=== PATIENT | male | born 1950 | race Caucasian/White ===

== ENCOUNTER → 2017-02-24 | Outpatient (CLI) | payer BC ==
[2017-02-24 13:22] LABS: URINE APPEARANCE CLEAR (CLEAR); URINE BILIRUBIN NEG (NEG); URINE COLOR YELLOW; URINE NITRITE NEG (NEG); URINE PH 5.5 (4.5-7.5); URINE SPECIFIC GRAVITY 1.021 (1.000-1.030); UROBILINOGEN NEG (NEG)
[2017-02-24 13:24] LABS: MANUAL MICROSCOPIC REQUIRED? NO; REVIEW REQ? NO
[2017-02-24 13:30] LABS: BASO % 0.3 %; BASO ABS # 0.02 K/uL (0-0.2); COMPLETE YES; EOS % 1.6 %; HEMATOCRIT 39.9 % (42-52); IG% 0.3 %; LYMPH % 34.5 %; LYMPH ABS # 2.32 K/uL (1.2-3.4); MEAN CELL VOLUME 92.6 fL (80-100); MEAN CORPUSCULAR HEMOGLOBIN 31.1 pg (25-34); MEAN CORPUSCULAR HGB CONC 33.6 g/dl (32-36); MONO % 7.7 %; NEUT % 55.6 %; PLATELET COUNT 282 K/uL (130-400); RED BLOOD COUNT 4.31 M/uL (4.7-6.1); WHITE BLOOD COUNT 6.72 K/uL (4.8-10.8)
[2017-02-24 13:43] LABS: ALT/SGPT 48 U/L (12-78); AST/SGOT 27 U/L (15-37); BLOOD UREA NITROGEN 18 mg/dl (7-18); BUN/CREATININE RATIO 18.5 (10-20); CALCIUM 8.7 mg/dl (8.5-10.1); CARBON DIOXIDE 29 mmol/L (21-32); CHLORIDE 103 mmol/L (98-107); CREATININE 0.97 mg/dl (0.60-1.40); GLUCOSE 110 mg/dl (70-99); POTASSIUM 4.1 mmol/L (3.5-5.1); SODIUM 139 mmol/L (136-145)
[2017-02-24 13:54] LABS: ALB/GLOB RATIO 1.1 (0.9-2); ALKALINE PHOSPHATASE 119 U/L (45-117); CHOLESTEROL 157 mg/dl (0-200); CHOLESTEROL/HDL RATIO 4.5; HDL CHOLESTEROL 35 mg/dl; LDL CHOLESTEROL CALCULATED 97 mg/dl; TRIGLYCERIDES 125 mg/dl (0-150); VERY LOW DENSITY LIPOPROT CALC 25 mg/dl
== END | disposition home or self-care (01) ==
LOC: C.LABMFLN 09:32
PROVIDERS: ATTEND Physician Assistant
DX: I10 Essential (primary) hypertension (principal); E78.5 Hyperlipidemia, unspecified; Z13.29 Encounter for screening for other suspected endocrine disorder

== ENCOUNTER → 2017-08-26 | Outpatient (CLI) | payer OTHER | END | disposition home or self-care (01) | LOC: C.LABMFLN 09:41 | PROVIDERS: ATTEND Physician Assistant | DX: Z12.5 Encounter for screening for malignant neoplasm of prostate (principal); N52.9 Male erectile dysfunction, unspecified ==

== ENCOUNTER 2022-11-13 12:56 | Inpatient (IN) ==
--- NOTE | 2022-10-20 09:24 | PAT Medication Instructions ---
Medication Instructions Date of Service October 20, 2022 Home Medications Medication Instructions Recorded nsxvbcvcsgg-pve-rykudjkwp-hrb 2 tab PO DAILY #180 tabs 02/23/19 149-hyalur 500 mg-500 mg-66.7 mg tablet ([facility] (with antiox)) krill oil 500 mg capsule 500 mg PO HS #90 caps 02/23/19 skbxhtlt-rvu-vqmfp acid 300 1 tab PO DAILY #90 tabs 02/23/19 mcg-lycopene 600 mcg-lutein 300 mcg tablet (Men 50 Plus Multivitamin) lisinopril 20 mg tablet 20 mg PO DAILY #90 tabs 12/16/21 hydrocortisone 2.5 % topical cream 1 applic topical BID PRN skin 01/28/22 irritation #20 grams hydrochlorothiazide 25 mg tablet See Rx Instructions .Route 03/12/22 .COMPLEX #90 tabs atorvastatin 80 mg tablet See Rx Instructions .Route 04/23/22 .COMPLEX #90 tabs metformin 500 mg tablet,extended 500 mg PO BID #180 tabs 09/03/22 release 24 hr nrdsccqykte-yju-aidduvmll-hrb 149-hyalur 500 mg-500 mg-66.7 mg tablet (Zoszcrrrtvv-Qqxfvwbrqsb-GKR (with antiox)) 2 tab PO DAILY krill oil 500 mg capsule 500 mg PO HS Men 50 Plus Multivitamin 1 tab PO DAILY lisinopril 20 mg tablet 20 mg PO DAILY hydrocortisone 2.5 % topical cream 1 applic topical BID PRN skin irritation hydrochlorothiazide 25 mg tablet See Rx Instructions .Route .COMPLEX atorvastatin 80 mg tablet See Rx Instructions .Route .COMPLEX metformin 500 mg tablet,extended release 24 hr 500 mg PO BID aspirin 81 mg tablet,delayed release 81 mg PO QPM ASK your prescriber and surgeon aspirin 81 mg tablet,delayed release 81 mg PO QPM STOP taking 2 weeks before surgery (or as soon as possible if surgery is within 2 weeks) vghefnoizoq-eok-dhknqhjob-hrb 149-hyalur 500 mg-500 mg-66.7 mg tablet (Pvooxoaonbs-Kyodaalfawz-[facility] (with antiox)) 2 tab PO DAILY krill oil 500 mg capsule 500 mg PO HS STOP taking 24 hours before surgery hydrocortisone 2.5 % topical cream 1 applic topical BID PRN skin irritation DO NOT take the morning of surgery Men 50 Plus Multivitamin) 1 tab PO DAILY lisinopril 20 mg tablet 20 mg PO DAILY hydrochlorothiazide 25 mg tablet See Rx Instructions .Route .COMPLEX metformin 500 mg tablet,extended release 24 hr 500 mg PO BID Take morning of surgery With a small sip of water, OTHERWISE NOTHING TO EAT OR DRINK AFTER MIDNIGHT: atorvastatin 80 mg tablet See Rx Instructions .Route .COMPLEX Take evening before surgery metformin 500 mg tablet,extended release 24 hr 500 mg PO BID Other Notes If you have any questions please call us at [phone] or [phone] or [phone] or [phone]
--- NOTE | 2022-10-23 11:14 | Anesthesiology Consultation ---
Date of Service October 23, 2022 Assessment & Plan (1) Encounter for pre-operative examination: Chart Review Chart Review: Acceptable Risk for Surgery and Patient seen in Pre Admission Testing - Check BSG AM DOS Pt currently scheduled as 23 hours observation. If surgeon decides to change patient to Same Day Joint, patient would be acceptable risk for TKA, pending patient is motivated, has good support and surgeon's office completes Same Day Joint Program preop requirements. Per PAT appt on 10/23/22, patient denies any recent travel or large group activities. Pt is vaccinated for Covid. Will leave to surgeon's discretion if preop Covid testing needed. Educated on importance of using Covid precautions one week prior to surgery Teaching & Discussion Pre-Anesthesia Teaching/Discussion Notes: Instructed NPO after midnight before surgery,except medications with 15 cc of water. Medication instructions provided according to the PAT guidelines. History Surgery Operation Date: 11/13/22 11:15 Proposed Procedures p Right Reverse Total Shoulder Arthroplasty - Marcello Dang M.D. Height/Weight Height: 5 ft 10 in Weight: 96.1 kg Allergies Allergy/AdvReac Type Severity Reaction Status Date / Time No Known Allergies Allergy Verified 10/20/22 07:42 Medications Home Medications Medication Instructions Recorded Confirmed Last Taken bpszlwiaebr-gxc-yrhrqjaum-hrb 2 tab PO DAILY #180 tabs 02/23/19 10/20/22 Unknown 149-hyalur 500 mg-500 mg-66.7 mg tablet (Bydxxijlinq-Kkrpvzmavrs-DFR (with antiox)) krill oil 500 mg capsule 500 mg PO HS #90 caps 02/23/19 10/20/22 Unknown fxascyhj-aqk-rtdwa acid 300 1 tab PO DAILY #90 tabs 02/23/19 10/20/22 Unknown mcg-lycopene 600 mcg-lutein 300 mcg tablet (Men 50 Plus Multivitamin) lisinopril 20 mg tablet 20 mg PO DAILY #90 tabs 12/16/21 10/20/22 Unknown hydrocortisone 2.5 % topical cream 1 applic topical BID PRN skin 01/28/22 10/20/22 Unknown irritation #20 grams hydrochlorothiazide 25 mg tablet See Rx Instructions .Route 03/12/22 10/20/22 Unknown .COMPLEX #90 tabs atorvastatin 80 mg tablet See Rx Instructions .Route 04/23/22 10/20/22 Unknown .COMPLEX #90 tabs metformin 500 mg tablet,extended 500 mg PO BID #180 tabs 09/03/22 10/20/22 Unknown release 24 hr aspirin 81 mg tablet,delayed 81 mg PO QPM 10/20/22 10/20/22 Unknown release Past Medical History Medical History Diabetes mellitus type 2, controlled NIDDM Blood sugars stable and controlled per patient History of compression fracture of spine Fall off a horse ~2012. No surgery. Doing well since then History of rib fracture ~ No current issues Hyperlipidemia Hypertension Obstructive sleep apnea, adult cpap nightly. Exercise / Class Metabolic Activity II 4-5 Yardwork/Stairs/Walk up hill (one flight of stairs - no chest pain or SOB; walks three miles daily) Past Family History Family History Mother COPD (chronic obstructive pulmonary disease) Father Black lung disease Uncle Prostate cancer Other No family history of adverse response to anesthesia Denies family history of Ovarian cancer Myocardial infarction Breast cancer Colorectal cancer Past Surgical History Surgical History H/O wrist surgery tendon fixed in right History of colonoscopy History of tonsillectomy Hx of hand surgery "had the tip of a finger sewed back on" Status post rotator cuff repair left Past Anesthesia History No Hx of Anesthesia Complications and No Family Hx of Anesthesia Complications History of PONV No Hx of PONV and No Hx of Motion Sickness Social History Smoking Status: Never smoker Do You Dip or Chew Tobacco: No Hx Alcohol Use: No Hx Substance Use: No Review of Systems Patient denies chest pain, shortness of breath, dyspnea on exertion, reflux, cough, wheezing, palpitations. No hx of seizures, stroke, OK. No hx of blood clots or blood transfusions Physical Exam Vital Signs VITALS BP 122/68 P 67 TEMP 98.0 SP02 99% RESP 16 Constitutional no acute distress ENMT Mouth: no TMJ clicking Thyromental Distance: > or= 3.5 Finger Breadths (3.5) Mallampati Class: III Missing molars Permanent implants - molars Neck neck extension not limited Respiratory normal respiratory effort; no respiratory distress Auscultation: lungs clear to auscultation bilaterally; no wheezes Cardiovascular Rate/Rhythm: regular rate and regular rhythm Heart Sounds: no murmur Vessels: no carotid bruit Musculoskeletal Spine: no pain with cervical ROM Extremities: extremities normal to inspection Psychiatric Orientation: alert Lab Results Anesthesia Preop Results Results Anesthesia Widget: WBC 5.98 K/ul (4.8-10.8) 10/23/22 Hgb 13.0 g/dl (14.0-18.0) L 10/23/22 Hct 38.7 % (42.0-52.0) L 10/23/22 Plt 269 K/uL (130-400) 10/23/22 Na 137 mmol/L (136-145) 10/23/22 K 4.7 mmol/L (3.5-5.1) 10/23/22 Cl 102 mmol/L (98-107) 10/23/22 CO2 31 mmol/L (21-32) 10/23/22 BUN 23 mg/dl (6-23) 10/23/22 Creat 1.11 mg/dl (0.6-1.4) 10/23/22 Glucose Level 103 mg/dl (70-99(Fasting)) H 10/23/22 PT 10.8 Seconds (9.0-12.0) 10/23/22 PTT 25.8 Seconds (21.0-31.0) 10/23/22 INR 1.0 (0.9-1.1) 10/23/22 HA1c 6.9 % (4.5-5.6) H 10/23/22 Urine Color Yellow 10/23/22 Urine Appearance Clear (Clear) 10/23/22 Urine pH 7.0 (4.5-7.5) 10/23/22 Urine Specific [place] 1.016 (1.000-1.030) 10/23/22 Urine Protein Negative (Negative) 10/23/22 Urine Glucose (UA) Negative (Negative) 10/23/22 Urine Ketones Negative (Negative) 10/23/22 Urine Blood Negative (Negative) 10/23/22 Urine Nitrite Negative (Negative) 10/23/22 Urine Bilirubin Negative (Negative) 10/23/22 Urine Urobilinogen Negative (Negative) 10/23/22 Urine Leukocyte Esterase Negative (Negative) 10/23/22 Blood Type O Positive 10/23/22 Antibody Screen NEGATIVE 10/23/22 Testing Electrocardiogram Date: 10/23/22 Findings: + NSR @ (61bpm) Normal EKG per cardio Chest X-Ray Date: 10/23/22 Findings: + NAD FINDINGS: PA and lateral chest radiographs are obtained. No prior studies are available for comparison at the time of dictation. The heart appears mildly enlarged noting atherosclerotic calcification of the thoracic aorta. The pulmonary vasculature is noncongested. Scarring/atelectasis is seen at the lung bases. There are scattered calcified granulomas. The lungs and pleural spaces are otherwise clear. There is no pneumothorax. The skeletal structures are osteopenic. There are numerous chronic/healed left-sided rib fractures. Degenerative change is noted in the spine. COVID-19 Risk Screen Screening Information COVID-19 Screen Date: 10/23/22 Exposure 21 Days Family/Household +COVID Last 21 Days: No Exposure 10 Days Any COVID Exposure Last 10 Days: No Symptoms Last 10 Days Experienced COVID Sx Last 10 Days: No + COVID 0-90 Days COVID + in Last 0-90 Days: No Risk Plan COVID Risk Plan: No Risk Identified Patient Education COVID Preop Screening Education Complete: Yes
--- NOTE | 2022-11-12 16:36 | History & Physical Report ---
Date of Service November 12, 2022 Assessment & Plan (1) Rotator cuff arthropathy of right shoulder: Plan: He has a massive, full-thickness, retracted rotator cuff tear involving the entirety of the supraspinatus and subscapularis tendons with associated fatty atrophy. This is therefore an irrepairable rotator cuff tear. He has remodeling changes consistent with early rotator cuff tear arthropathy. Rotator cuff repair is not a good option for him and would carry an unacceptably high risk of failure of the repair and recurrent tear. The most reliable surgical treatment option would be a reverse total shoulder arthroplasty. We discussed conservative treatment with steroid injections versus definitive surgical intervention, and he would much prefer the latter at this point. I think this is reasonable. We will therefore plan for a right reverse total shoulder arthroplasty. Risks, benefits, and alternatives of surgery were explained in detail. The surgical procedure, as well as postoperative recovery and rehabilitation, was also explained in detail. Risks include bleeding; infection; damage to surrounding structures such as nerves, blood vessels, and tendons that run in the area; persistent pain or stiffness; hardware failure; dislocation; brachial plexus palsy; blood clots; or need for further surgery. The patient understands all of this and wishes to proceed with surgery. Risks will be reviewed on the day of surgery and informed consent obtained. History of Present Illness Chief Complaint: Right shoulder pain and weakness Primary Care Provider: Emily Fritz PA-C Mr. Rm is a 72-year-old tliwa-omlq-ykmwkalz male with chronic right shoulder pain weakness. This got acutely worse around April 2022 when he slipped getting off of a horse trailer. Allergies Allergy/AdvReac Type Severity Reaction Status Date / Time No Known Allergies Allergy Verified 10/20/22 07:42 Home Medications Medication Instructions Recorded Confirmed Type brhbgylushv-eft-teylbamnq-hrb 2 tab PO DAILY #180 tabs 02/23/19 10/20/22 Rx 149-hyalur 500 mg-500 mg-66.7 mg tablet (Cdlelpxmrer-Srghwboktqo-NXM (with antiox)) krill oil 500 mg capsule 500 mg PO HS #90 caps 02/23/19 10/20/22 Rx hagrjlzn-qca-bxluj acid 300 1 tab PO DAILY #90 tabs 02/23/19 10/20/22 Rx mcg-lycopene 600 mcg-lutein 300 mcg tablet (Men 50 Plus Multivitamin) lisinopril 20 mg tablet 20 mg PO DAILY #90 tabs 12/16/21 10/20/22 Rx hydrocortisone 2.5 % topical cream 1 applic topical BID PRN skin 01/28/22 10/20/22 Rx irritation #20 grams hydrochlorothiazide 25 mg tablet See Rx Instructions .Route 03/12/22 10/20/22 Rx .COMPLEX #90 tabs atorvastatin 80 mg tablet See Rx Instructions .Route 04/23/22 10/20/22 Rx .COMPLEX #90 tabs metformin 500 mg tablet,extended 500 mg PO BID #180 tabs 09/03/22 10/20/22 Rx release 24 hr aspirin 81 mg tablet,delayed 81 mg PO QPM 10/20/22 10/20/22 History release Past Med/Surg History Medical History Diabetes mellitus type 2, controlled NIDDM Blood sugars stable and controlled per patient History of compression fracture of spine Fall off a horse ~2012. No surgery. Doing well since then History of rib fracture ~ No current issues Hyperlipidemia Hypertension Obstructive sleep apnea, adult cpap nightly. Surgical History H/O wrist surgery tendon fixed in right History of colonoscopy History of tonsillectomy Hx of hand surgery "had the tip of a finger sewed back on" Status post rotator cuff repair left Family History Mother COPD (chronic obstructive pulmonary disease) Father Black lung disease Uncle Prostate cancer Other No family history of adverse response to anesthesia Denies family history of Ovarian cancer Myocardial infarction Breast cancer Colorectal cancer Social History Smoking Status: Never smoker Second Hand Exposure: Yes; Hx Alcohol Use: No Hx Substance Use: No Preferred Language: Romanian Communication Ability: Effective Visual Impairment: Partially Limited Hearing Ability: Normal System Designer Required: No Beliefs That Will Affect Care: None marital status: Current Living Situation: Spouse current occupational status: retired Feels Safe at Home: Yes Childhood Exposure to Second-Hand Smoke: No caffeine: Yes (iced tea) during the past year weight has: remained stable Dental Care, Regularly: Yes Physical Activity Frequency: Daily Physical Activity Frequency Comment: 2 miles/house/yard/barn work Seatbelt Use: always Sunscreen Use: No Do you think of yourself as: straight/heterosexual Assistive Devices: CPAP and Glasses Physical Exam Physical Exam: Examination of the right shoulder shows moderate limitation in shoulder range of motion due to pain, with palpable crepitus during motion. Rotator cuff strength is globally weak. Results & Data ([facility]) Diagnostic Findings Previous x-rays of the right shoulder from September 2022 were reviewed. They show mild glenohumeral joint arthritis. There are remodeling changes on the greater tuberosity and undersurface of the acromion consistent with rotator cuff tear arthropathy. There is some proximal migration of the humeral head. MRI of the right shoulder from September 2022 reviewed. It shows a massive, full- thickness, directed rotator cuff tear involving the entirety of the supraspinatus and subscapularis tendons, with significant fatty atrophy of both muscle bellies. There is proximal migration of the humeral head and remodeling changes on the greater tuberosity and undersurface of the acromion consistent with early rotator cuff tear arthropathy.
[~2022-11-13 12:56] MED LIST: ACETAMINOPHEN 500 MG TAB PO SCH; BUPIVACAINE 0.5 % 5 MG/1 ML PF 10ML VIAL ONE; CeleBREX 200 MG CAP PO SCH; FAMOTIDINE 20 MG TAB PO SCH; GABAPENTIN 300 MG CAP PO SCH; LR 15ML/HR IV SCH; METOCLOPRAMIDE HCL 10 MG TABLET PO SCH; TRANEXAMIC ACID 1,000 MG **IV Pre-op IV SCH; ceFAZolin 2000MG 2,000 MG/15 ML SYR IV SCH; dexAMETHasone 4 MG TAB PO SCH
[2022-11-13] MEDS ORDERED: MIDAZOLAM HCL 1 MG/ML 2ML VIAL ONE (15:09)
[2022-11-13] MEDS ORDERED: fentaNYL citrate 100 MCG/2 ML VIAL ONE (15:09)
[2022-11-13] MEDS ORDERED: fentaNYL citrate 100 MCG/2 ML VIAL IV PRN (16:10)
[2022-11-13] MEDS ORDERED: ePHEDrine sulfate 50 MG/ML AMP IV PRN (16:10)
[2022-11-13] MEDS ORDERED: ONDANSETRON INJ 2 MG/ML 2 ML VIAL IV PRN ×2 (16:10→19:54)
[2022-11-13] MEDS ORDERED: ATROPINE SULFATE 0.1 MG/ML 10ML SYR IV PRN (16:10)
--- NOTE | 2022-11-13 16:36 | History & Physical Bridge Note ---
Date of Service November 13, 2022 History & Physical Bridge Note I have examined the patient, reviewed the History & Physical and in the interval since the performance of the History & Physical I have noted the following changes of clinical significance: no changes noted
--- NOTE | 2022-11-13 18:36 | Operative Report ---
Post Operative Report Pre & Post Diagnosis Operation Date: 11/13/22 15:15 Preop Diagnosis: Right shoulder massive rotator cuff tear with rotator cuff tear arthropathy Postop Diagnosis: Right shoulder massive rotator cuff tear with rotator cuff tear arthropathy I identified the patient and participated in the time-out.: Yes Procedure Operation Date: 11/13/22 15:15 Right reverse total shoulder arthroplasty (38148) Surgeon Marcello Dang MD Wellness Coordinator Jignesh Slaughter PA-C Estimated Blood Loss 75 Findings Consistent with Post-Op Diagnosis Specimens None Drains None Anesthesia Type General Regional Complications none Disposition Disposition: Recovery Room Indications Mr. Rm is a 72-year-old male with chronic right shoulder pain and weakness that got acutely worse after a fall off of a trailer in April 2022. History, clinical exam, and imaging were consistent with the above diagnosis. Risks, benefits, and alternatives of surgery were explained in detail. The patient understood all this and wished to proceed. Description of Procedure Components Implanted: Tornier Reverse Total Shoulder implants Perform glenoid baseplate: 29mm, 15 degree full wedge with 6.5mm central screw and 5.0mm peripheral screws Glenosphere: 39mm standard Ascend Flex humeral stem: 4B Standard length (78mm) Humeral tray: 1.5 mm offset, +0mm thickness Polyethylene insert: 39mm, +6mm thickness Patient was identified in the preoperative holding area. Operative extremity was marked. Regional blockade was given by the Anesthesia Staff. Patient was then brought back to the operating room, and general anesthesia was induced without complication. Appropriate weight-based dose of Ancef was infused intravenously for antibiotic prophylaxis. The patient was then placed in the beachchair position. Right arm was then prepped and draped in a standard sterile fashion using Chlorhexidine prep. A standard deltopectoral incision was made through the skin and subcutaneous tissue. The cephalic vein was identified and retracted medially. Small branches to the deltoid were coagulated as necessary. The clavipectoral fascia was then incised and the subdeltoid space was opened. The rotator cuff was found to be deficient, and I therefore decided to perform a reverse total shoulder arthroplasty as planned preoperatively. The biceps tendon was noted to be absent from the bicipital groove, consistent with a preoperative biceps tendon rupture. Therefore, no biceps tenodesis was performed. The remaining subscapularis tendon was elevated subperiosteally off of the lesser tuberosity. The glenohumeral joint was then dislocated, and large osteophytes were debrided with a ronguer. The intramedullary canal of the humerus was then opened with a canal finder. The humeral head cut was then made in the appropriate inclination and version using the cutting guide. The humeral canal was then sequentially broached to the appropriate size. A protective cap was then placed on top of the humeral trial. I then turned my attention to the glenoid. The proximal stump of the biceps tendon was excised, along with the labrum circumferentially around the glenoid. The Blueprint drill guide was then positioned on the glenoid, and the guidepin was then inserted. The 15 degree angled reamer was then inserted over the guidepin and an reamed to an appropriate depth. The central screw hole was drilled, and appropriate length 6.5mm central screw was selected. The baseplate was then implanted into place according to our preoperative Blueprint plan by tightening down the central screw. A peripheral 5mm nonlocking screw was placed superiorly first for additional compression of the baseplate, and then additional locking 5 mm peripheral screws were placed to complete fixation of the baseplate. Glenosphere was then impacted and secured. A trial humeral tray and insert were placed on the trial humeral stem, and a trial reduction was carried out. Once I achieved acceptable joint stability and range of motion with the trial implants, the final humeral implants were assembled on the back table and then impacted into position. I then took the shoulder through full range of motion to ensure good stability and acceptable motion. Wound was then copiously irrigated with sterile saline. Deep fascia was closed with 0 V-lock suture. Subcutaneous tissue was closed with 2-0 V-lock, and skin was closed with 3-0 V-lock. Skin was then sealed with Dermabond. Sterile dressings were then applied with a waterproof silver-impregnated dressing, and the arm was placed into a sling. The patient was awakened from anesthesia and taken to the Post Anesthesia Care Unit in stable condition. There were no immediate complications from the procedure. I was present and scrubbed for the entire procedure, with the exception of final skin closure and dressing application. Due to the complex nature of the procedure, the entire surgery was performed with the operational assistance of Jignesh Slaughter PA-C. The restaurant assistant, under direct supervision, was involved in the performance of all aspects of the surgical procedure including hemostasis, tissue incision and retraction, instrument management, patient positioning, and wound closure. I attest to the content of the Intraoperative Record and any orders documented therein. Any exceptions are noted below.
[2022-11-13] MEDS ORDERED: PROPOFOL IV EMULSION 10 MG/ML 20 ML VIAL IV ONE (18:58)
[2022-11-13] MEDS ORDERED: ONDANSETRON INJ 2 MG/ML 2 ML VIAL ONE (18:58)
[2022-11-13] MEDS ORDERED: DEXAMETHASONE SOD INJ 4 MG/ML VIAL ONE (18:58)
--- NOTE | 2022-11-13 19:31 | XRay Report ---
XR shoulder RT min 2V routine CLINICAL HISTORY: Post shoulder replacement TECHNIQUE: 3 views of the right shoulder were obtained. Comparison: Comparison is made to chest radiograph 10/23/2022 FINDINGS: Patient is status post shoulder arthroplasty with expected postsurgical changes including soft tissue swelling and subcutaneous emphysema. No periarticular lucency or hardware fracture is seen. IMPRESSION: Expected postoperative appearance status post placement of shoulder arthroplasty. ACT 112: Negative or not required by law. Electronically signed by: Reed Jeffrey M.D. 11/13/2022 7:30 PM
[2022-11-13] MEDS ORDERED: MAGNESIUM HYDROXIDE SUSP 30 ML UDC PO PRN (19:54)
[2022-11-13] MEDS ORDERED: NALOXONE HCL 0.4 MG/1 ML VIAL/CARP IV PRN (19:54)
[2022-11-13] MEDS ORDERED: oxyCODONE HCL IR 5 MG TAB (IMMEDIATE RELEASE) PO PRN (19:54)
[2022-11-13] MEDS ORDERED: bisacodyL 10 MG SUPP PR PRN (19:54)
[2022-11-13] MEDS ORDERED: METOCLOPRAMIDE HCL INJ 5 MG/ML 2 ML VIAL IV PRN (19:54)
--- NOTE | 2022-11-13 20:02 | Anesthesiology Progress Note ---
Date of Service November 13, 2022 Anesthesia Post Procedure Vital Signs Vital Signs: Temp Pulse Pulse Resp BP BP Pulse Ox 11/13/22 19:54 37.1 C 73 16 124/70 95 11/13/22 19:45 70 21 124/69 94 11/13/22 19:30 80 19 125/83 95 11/13/22 19:20 36.4 C L 74 20 150/74 H 94 11/13/22 19:10 81 15 130/83 93 11/13/22 19:00 73 15 154/81 H 94 11/13/22 18:50 36.2 C L 80 18 165/84 H 96 11/13/22 16:42 68 20 127/68 97 11/13/22 16:32 73 20 119/71 98 11/13/22 16:22 73 20 117/74 97 11/13/22 13:21 36.7 C 86 20 161/78 H 98 O2 Del Method O2 Flow Rate 11/13/22 19:54 Room Air 11/13/22 19:45 Room Air 11/13/22 19:30 Room Air 11/13/22 19:20 Room Air 11/13/22 19:10 Room Air 11/13/22 19:00 Oxymask 5 11/13/22 18:50 Oxymask 5 11/13/22 16:42 Oxymask 2 11/13/22 16:32 Oxymask 2 11/13/22 16:22 Oxymask 2 11/13/22 13:21 Room Air Pain Intensity Right Shoulder: Pain Intensity: 3 Right Elbow: Pain Intensity: 2 Transfer of Care Handoff Completed per policy Notes Mental Status: alert / awake / arousable Patient Amnestic to Procedure: Yes Nausea / Vomiting: adequately controlled Pain: adequately controlled Airway Patency, RR, SpO2: stable & adequate BP & HR: stable & adequate Hydration State: stable & adequate Anesthetic Complications: no major complications apparent
[2022-11-13] MEDS ORDERED: NON-FORMULARY MEDICATION (Krill Oil 500 mg capsule) PO SCH (21:00)
[2022-11-13] MEDS ORDERED: SENNA 8.6 MG TAB PO SCH (21:00)
[2022-11-13] MEDS: DOCUSATE SODIUM 100 MG CAP PO SCH (21:08)
[2022-11-13] MEDS: IBUPROFEN 600 MG TAB PO SCH (21:08)
[2022-11-13] MEDS: hydroCHLOROthiazide 25 MG TAB PO SCH (21:09)
[2022-11-13] MEDS: ATORVASTATIN 40 MG TAB PO SCH (21:09)
[2022-11-13] MEDS: SODIUM CHLORIDE 0.9% 1000ML 1,000 ML IV SCH ×2 (21:09→23:30)
[2022-11-13] MEDS: metFORMIN HCL ER 500 MG TABCR PO SCH (21:09)
[2022-11-13] MEDS: ACETAMINOPHEN 500 MG TAB PO SCH ×2 (23:02→23:29)
[2022-11-14] MEDS: ceFAZolin 2000MG 2,000 MG/15 ML SYR IV SCH ×2 (01:52→08:30)
[2022-11-14] MEDS: IBUPROFEN 600 MG TAB PO SCH ×2 (01:52→08:30)
[2022-11-14] MEDS: ACETAMINOPHEN 500 MG TAB PO SCH ×2 (05:40→11:10)
[2022-11-14 06:33] LABS: Basophils # (auto) 0.01 K/uL (0-0.2); Basophils % (auto) 0.1 %; Hematocrit (blood only) 33.4 % (42.0-52.0); Hemoglobin 11.6 g/dl (14.0-18.0); Immature Granulocytes # (auto) 0.05 K/uL (0.01-0.20); Immature Granulocytes % (auto) 0.4 %; Lymphocytes # (auto) 1.16 K/uL (1.2-3.4); Lymphocytes % (auto) 10.4 %; Mean Corpuscular Hemoglobin 31.8 pg (25.0-34.0); Mean Corpuscular Hgb Conc 34.7 g/dL (32.0-36.0); Mean Corpuscular Volume 91.5 fL (80.0-100.0); Mean Platelet Volume 9.5 fL (9.4-12.4); Monocytes # (auto) 0.74 K/uL (0.11-0.59); Monocytes % (auto) 6.6 %; Neutrophils # (auto) 9.21 K/uL (1.40-6.50); Neutrophils % (auto) 82.5 %; Platelet Count 248 K/uL (130-400); RDW Coefficient of Variation 12.8 % (11.5-14.5); RDW Standard Deviation 42.5 fL (36.4-46.3); Red Blood Count 3.65 M/uL (4.70-6.10); White Blood Count 11.17 K/ul (4.8-10.8)
[2022-11-14 07:02] LABS: BUN Creatinine Ratio 25.1 (10-20); Calcium 9.2 mg/dl (8.5-10.1); Creatinine Clr Calc Pharmacy 47.1 ml/min; Est GFR (African American) 47.3 ml/min; Est GFR (Non-African American) 40.8 ml/min; Potassium 4.6 mmol/L (3.5-5.1)
[2022-11-14] MEDS: metFORMIN HCL ER 500 MG TABCR PO SCH (08:29)
[2022-11-14] MEDS: DOCUSATE SODIUM 100 MG CAP PO SCH (08:29)
[2022-11-14] MEDS: hydroCHLOROthiazide 25 MG TAB PO SCH (08:29)
[2022-11-14] MEDS: ATORVASTATIN 40 MG TAB PO SCH (08:30)
[2022-11-14] MEDS ORDERED: ASPIRIN 325 MG ECTAB PO SCH (09:00)
[2022-11-14] MEDS ORDERED: CEROVITE ADV FORMULA TAB PO SCH (09:00)
[2022-11-14] MEDS ORDERED: lisinopril 20 MG TAB PO SCH (09:00)
[2022-11-14] MEDS ORDERED: SODIUM CHLORIDE 0.9% 1000ML 1,000 ML IV ONE (09:51)
--- NOTE | 2022-11-14 09:58 | Orthopedic Progress Note ---
Date of Service November 14, 2022 Assessment & Plan (1) Rotator cuff arthropathy of right shoulder: Plan: POD 1 s/p Right [facility] PT/OT protocols. [facility]LE [facility]. DVT prophylaxis - ASA po daily, SCD's Pain management as written. Increased Creat overnight. Possible LINDSEY due to NSAIDS/Surgery. Creat 1.6. Baseline 1.1. Pt without CKD hx. Will give 1L of NSS and recheck BMP at 1300. If his Creat continues to rise, he may need to stay an additional day for gentle hydration. If same or better, will plan for repeat BMP next week with f/u with PCP. Repeat BMP showing Creatinine to be 1.68. Discussed case with hosptialist service. Plan to continue hydration at home with plans for repeat BMP early next week. Follow up with PCP for results. Admission and Anticipated Discharge Date Admission Date: November 13, 2022 Subjective POD 1 Pt sitting up at bedside. Getting ready to start his PT session. Pain controlled. No complaints this AM. Discussed with him that his Creatinine had bumped up to 1.6 from 1.1. Likely due to medications/surgery. No other complaints or questions this AM. Physical Exam Physical Exam: Silverlon dressing C/D/I. No overt erythema of the shoulder. Sling in place. Good ROM of the fingers/wrist. Good hand strength. Cap refill < 2 seconds. Results & Data ([facility]) Vital Signs (Past 12 Hours) Vital Signs Temp Pulse Pulse Resp BP Pulse Ox O2 Del Method 11/14/22 07:49 36.4 C L 67 16 130/69 96 Room Air 11/14/22 03:00 36.4 C L 73 18 110/62 96 Room Air 11/13/22 23:35 36.7 C 81 20 113/58 L 95 Room Air Laboratory Results Laboratory Results WBC 11.17 K/ul (4.8-10.8) H 11/14/22 05:44 RBC 3.65 M/uL (4.70-6.10) L 11/14/22 05:44 Hgb 11.6 g/dl (14.0-18.0) L 11/14/22 05:44 Hct 33.4 % (42.0-52.0) L 11/14/22 05:44 MCV 91.5 fL (80.0-100.0) 11/14/22 05:44 MCH 31.8 pg (25.0-34.0) 11/14/22 05:44 MCHC 34.7 g/dL (32.0-36.0) 11/14/22 05:44 RDW Std Deviation 42.5 fL (36.4-46.3) 11/14/22 05:44 RDW Coeff of Génesis 12.8 % (11.5-14.5) 11/14/22 05:44 Plt Count 248 K/uL (130-400) 11/14/22 05:44 MPV 9.5 fL (9.4-12.4) 11/14/22 05:44 Immature Gran % (Auto) 0.4 % 11/14/22 05:44 Neut % (Auto) 82.5 % 11/14/22 05:44 Lymph % (Auto) 10.4 % 11/14/22 05:44 Bonner % (Auto) 6.6 % 11/14/22 05:44 Eos % (Auto) 0.0 % 11/14/22 05:44 Baso % (Auto) 0.1 % 11/14/22 05:44 Neut # (Auto) 9.21 K/uL (1.40-6.50) H 11/14/22 05:44 Lymph # (Auto) 1.16 K/uL (1.2-3.4) L 11/14/22 05:44 Bonner # (Auto) 0.74 K/uL (0.11-0.59) H 11/14/22 05:44 Eos # (Auto) 0.00 K/uL (0-0.50) 11/14/22 05:44 Baso # (Auto) 0.01 K/uL (0-0.2) 11/14/22 05:44 Immature Gran # (Auto) 0.05 K/uL (0.01-0.20) 11/14/22 05:44 Sodium 136 mmol/L (136-145) 11/14/22 05:44 Potassium 4.6 mmol/L (3.5-5.1) 11/14/22 05:44 Chloride 103 mmol/L (98-107) 11/14/22 05:44 Carbon Dioxide 25 mmol/L (21-32) 11/14/22 05:44 Anion Gap 8 (3-11) 11/14/22 05:44 BUN 42 mg/dl (6-23) H 11/14/22 05:44 Creatinine 1.67 mg/dl (0.6-1.4) H 11/14/22 05:44 Est Cr Clr Drug Dosing 47.1 ml/min 11/14/22 05:44 Est GFR ( Amer) 47.3 ml/min 11/14/22 05:44 Est GFR (Non-Af Amer) 40.8 ml/min 11/14/22 05:44 BUN/Creatinine Ratio 25.1 (10-20) H 11/14/22 05:44 Glucose 141 mg/dl (70-99(Fasting)) H 11/14/22 05:44 POC Glucose 148 mg/dl (70-99) H 11/13/22 18:51 Calcium 9.2 mg/dl (8.5-10.1) 11/14/22 05:44 SARS-CoV-2, RNA, NAAT NEGATIVE (NEGATIVE) 11/13/22 Unknown Impressions Shoulder X-Ray 11/13/22 18:48 XR shoulder RT min 2V routine CLINICAL HISTORY: Post shoulder replacement TECHNIQUE: 3 views of the right shoulder were obtained. Comparison: Comparison is made to chest radiograph 10/23/2022 FINDINGS: Patient is status post shoulder arthroplasty with expected postsurgical changes including soft tissue swelling and subcutaneous emphysema. No periarticular lucency or hardware fracture is seen. IMPRESSION: Expected postoperative appearance status post placement of shoulder arthroplasty. ACT 112: Negative or not required by law. Electronically signed by: Reed Jeffrey M.D. 11/13/2022 7:30 PM
[2022-11-14 13:09] LABS: BUN Creatinine Ratio 26.8 (10-20); Calcium 9.3 mg/dl (8.5-10.1); Creatinine Clr Calc Pharmacy 46.8 ml/min; Est GFR (Non-African American) 40.5 ml/min; Potassium 4.1 mmol/L (3.5-5.1)
--- NOTE | 2022-11-14 17:01 | Discharge Summary ---
Date of Service November 14, 2022 Admission HPI Per Admitting Provider Mr. Rm is a 72-year-old [id number] male with chronic right shoulder pain weakness. This got acutely worse around April 2022 when he slipped getting off of a horse trailer. Principal Diagnosis Right shoulder massive rotator cuff tear with rotator cuff tear arthropathy Discharge Data Allergies Allergy/AdvReac Type Severity Reaction Status Date / Time No Known Allergies Allergy Verified 11/13/22 13:15 Procedures Performed Operation Date: 11/13/22 15:15 Actual Procedures p Right Reverse Total Shoulder Arthroplasty--Uncemented(Right) - Marcello Dang M.D. Ordered Studies 11/13/22 05:00 US - OR guided needle placemen Routine Hospital Course (1) Rotator cuff arthropathy of right shoulder: Patient underwent a right reverse total shoulder arthroplasty on the date of admission. Patient tolerated the procedure well and was transferred up to the general orthopedic surgery floor in stable condition. Perioperative antibiotic coverage was initiated, and continued for 24 hours postoperatively. DVT prophylaxis was initiated consisting of SCDs and aspirin 325 mg daily. Perioperative pain control regimen was transitioned to strictly oral pain medications by postoperative day 1. On postoperative day 1 the patient was doing very well. Pain was well controlled, and patient was mobilizing well with therapy. However, morning labs showed a slight elevation in his creatinine from a baseline of 1.1 up to about 1.6. He was given some hydration and anti- inflammatories were held. Recheck later in the day showed no further elevation of his creatinine. Patient was determined be safe and ready for discharge to home, with a recheck of his labs planned with his primary care physician in about a week. Total Time Total Time Spent Total Time Spent (In Minutes): 25 Discharge Plan Discharge Items Patient Disposition: Home - Self-Care Reason For Visit: Right Shoulder Rotator Cuff Tear Arthroplasty Discharge Diagnosis: Right shoulder rotator cuff tear arthropathy Activity: Per Instructions section Non-emergency contact: Surgeon Call non-emergency contact if: your pain is not controlled, your temperature is above 101.5, your wound has increased redness and your wound has increased dr shabazz Follow-up/Referrals: Emily Fritz PA-C [Primary Care Provider] - Marcello Dang M.D. [Physician] - Diet: Carb Consistent or DM2 Ambulatory Orders: Basic Metabolic Panel (Routine) Timeframe: 20221118 Location: Determined by Patient Ordered By: Artis Duran Attending Provider Instructions: - CONTINUE TO DRINK PLENTY OF WATER OVER THE NEXT SEVERAL DAYS FOR HYDRATION - PLEASE DO NOT TAKE YOUR IBUPROFEN FOR THE NEXT 3 DAYS. MAKE SURE TO GET YOUR BLOOD DRAWN NOTED BELOW NEXT WEEK. - A PRESCRIPTION FOR BLOOD WORK HAS BEEN PUT ON YOUR CHART. YOU WILL NEED TO HAVE YOUR BLOOD DRAWN TO CHECK YOUR KIDNEY FUNCTION. THE RESULTS WILL BE SENT TO YOUR PRIMARY CARE PHYSICIAN. Things to Watch Out For -Go to the Emergency Room if you have sudden onset of nausea, vomiting, chest pain, shortness of breath, or uncontrollable pain. -Call the clinic or go to the Emergency Room if you have a sudden increase in the amount of wound drainage or the drainage becomes thick, yellow or green, or foul-smelling. -For routine questions, call the clinic at [phone] during regular business hours (8am-5pm). For urgent issues after regular business hours, you may call the clinic to be connected to the on-call physician. Dressings -A special waterproof, silver-impregnated dressing was placed on your shoulder. Keep this dressing in place for 1 week after surgery. You may shower with the waterproof dressing in place, but do not soak the dressing in the bathtub or pool. -One week after surgery, you may remove the waterproof dressing. You may continue to shower, and let water run BRIEFLY over the incision, but do not soak the incision in the bathtub or pool for 2 weeks. You may also gently clean the incision with mild soap and water; pat the incision dry after cleaning-do not rub the incision. Apply a new dressing daily thereafter. Shoulder Exercises -Keep your operative shoulder in the sling for comfort, except as detailed below. -You should come out of the sling 4-5 times a day for passive pendulum exercises: lean over and swing your arm in a circular pattern. -You should also do active-assisted forward flexion exercises: use your opposite hand to lift your operative arm forward to 90 degrees. -Do not use your arm to push yourself up out of bed or up from a seated position. Ice Pack -You may use an ice pack for pain relief. You should use it 20-30 minutes at a time. Place a towel between the ice pack and your skin to prevent frostbite. -You should use the ice pack fairly regularly for the first 1-2 weeks after surgery to help reduce pain and inflammation. -About 2 weeks after your surgery, you should start using heat to loosen up your shoulder prior to doing your stretching exercises, then use the cooling sleeve after your exercises are complete to reduce swelling and pain. Pain Medicines -Your prescriptions for pain medications have already been sent to the pharmacy on file at [facility]. -You have been prescribed an anti-inflammatory (Motrin/ibuprofen) (HOLD THIS MEDICATION FOR NOW) and a non-narcotic pain medicine (Tylenol/acetaminophen). These are your primary pain medications. Take them each every 6 hours as instructed. It is recommended that you stagger these medicines every 3 hours (i.e. take ibuprofen at 8:00 am, then acetaminophen at 11:00 am, then ibuprofen at 2:00 pm, etc) -DO NOT take any additional anti-inflammatories (Advil, Aleve/naproxen, Mobic/meloxicam, Celebrex) or any additional Tylenol/acetaminophen products with these prescribed medications. -You have also been prescribed an additional narcotic pain medication (oxycodone). Take this medicine ONLY for breakthrough pain not controlled by the ibuprofen and acetaminophen. -Do not drive or operate heavy machinery while taking the narcotic medication. -Common side effects of narcotic pain medicines include itching, nausea, c onstipation, and feeling "loopy". However, if you develop a rash or hives, stop taking the medicine and call the clinic. If you develop swelling in your throat or difficulty breathing, go to the Emergency Room or call 911 IMMEDIATELY. -You may take over the counter stool softeners if needed for constipation. Aspirin -Take a full strength (325mg) aspirin every day for 4 weeks (28 days) to prevent blood clots. -If you were taking a baby aspirin (81mg) prior to surgery, you may resume taking this 81mg dose after you complete the 28-day course of the 325mg strength dose; do not take the 325mg dose in addition to your 81mg dose. -Be aware that you will bruise easier while taking Aspirin; this is normal. However, if you develop a significantly large area of swelling after an injury, or have a cut that will not stop bleeding, call the clinic or go to the Emergency Room immediately. Pending Studies at Discharge: No Stand-Alone Forms: My [facility] Medications and DC Order Prescriptions: Continued lisinopril 20 mg tablet 20 mg PO DAILY Qty: 90 1RF hydrochlorothiazide 25 mg tablet See Rx Instructions .ROUTE .COMPLEX Qty: 90 1RF Dose Instruction: TAKE 1 TABLET BY MOUTH EVERY DAY Rx Instructions: TAKE 1 TABLET BY MOUTH EVERY DAY metformin 500 mg tablet extended release 24 hr 500 mg PO BID Qty: 180 1RF [id number] [[id number] (with antiox)] 500-500-66.7 mg tablet 2 tab PO DAILY Qty: 180 3RF krill oil 500 mg capsule 500 mg PO HS Qty: 90 3RF Men 50 Plus Multivitamin 300-600-300 mcg tablet 1 tab PO DAILY Qty: 90 3RF atorvastatin [Lipitor] 80 mg tablet See Rx Instructions .ROUTE .COMPLEX Rx Instructions: TAKE 1 TABLET BY MOUTH EVERY DAY Discontinued aspirin 81 mg tablet,delayed release (DR/EC) 81 mg PO QPM Discharge Orders: Discharge Order (Routine); Ordered 11/14/22 Ordered By: Artis Christy Admission Data Admit Date/Time: 11/13/22 18:48 Attending Provider: Marcello Dang Admit Provider: Marcello Dang Primary Care Provider: Emily Fritz
== END 2022-11-14 15:10 | disposition home or self-care (01) | DRG 483 ==
LOC: ASU 12:56 → 3E 18:48